=== PATIENT | female | born 2000 | race Caucasian/White ===

== ENCOUNTER 2021-06-17 05:17 | Emergency (ER) | payer BC ==
[~2021-06-17] VITALS: Ht 165.1 cm; Wt 65.8 kg
--- NOTE | 2021-06-17 05:30 | NUR ---
PT AAOX4. OG C/O HAD PANIC ATTACK WHILE DRIVING, CALLED 911. DENIES SI AND HI. VSS. PLACED IN BED 10 ON MONITOR AND PULSE OX.
[2021-06-17] MEDS ORDERED: LORA-258 PO (05:40)
[2021-06-17] MEDS ORDERED: LORAZEPAM 1 MG TABLET ONE (05:45)
[2021-06-17] MEDS ORDERED: LORAZEPAM 1 MG TABLET PO ONE (06:00)
--- NOTE | 2021-06-17 07:01 | NUR ---
PT IS AWAKE AND ALERT. BREATHING EVENLY. NAD NOTED. REPORTED FEELING BETTER AND WILLING TO LEAVE. MADEA AWARE
--- NOTE | 2021-06-17 07:03 | NUR ---
Patient discharged to home in stable condition. Written and verbal after care instructions given. Patient verbalizes understanding of instruction.
[2021-06-17 07:04] VITALS: BP 121/65
--- NOTE | 2021-06-17 07:33 | NUR ---
Patient discharged to home in stable condition. Written and verbal after care instructions given. Patient verbalizes understanding of instruction.
== END 2021-06-17 07:33 | disposition home or self-care (01) ==
LOC: ER 05:20
DX: F41.9 Anxiety disorder, unspecified (principal); G47.00 Insomnia, unspecified; R06.00 Dyspnea, unspecified; Z79.899 Other long term (current) drug therapy